=== PATIENT | female | born 1975 | race Two or more races ===

== ENCOUNTER 2025-06-16 16:50 | Inpatient (IN) | payer OTHER ==
[~2025-06-16] VITALS: Ht 152.4 cm; Wt 77.8 kg
[2025-06-16 17:33] LABS: PLATELET COUNT (AUTO) 245 K/uL (179-408); RED BLOOD CELL COUNT(AUTO) 4.97 MIL/uL (3.63-4.92); RED CELL DISTRIBUTION WIDTH 14.4 % (12.3-17.7); WHITE BLOOD COUNT (AUTO) 11.5 K/uL (3.8-11.8)
[2025-06-16] MEDS ORDERED: IV NORMAL SALINE 250 ML IV ONE (17:35)
[2025-06-16] MEDS ORDERED: IOHEXOL 350 100 ML INFUS..BTL ONE (17:36)
[2025-06-16] MEDS ORDERED: SWABABLE VALVE TRANSFER SET EA MC ONE (17:36)
[2025-06-16 17:42] LABS: CREATININE 0.8 mg/dL (0.6-1.3); SODIUM SERUM 140 mmol/L (136-145); UREA NITROGEN, BLOOD 8 mg/dL (7-18)
[2025-06-16 17:45] LABS: ETHANOL < 3 MG/DL (0-10)
[2025-06-16 17:57] LABS: ASPARTATE AMINOTRANSFERASE 21 U/L (15-37); TOTAL PROTEIN, SERUM 8.1 g/dL (6.4-8.2)
[2025-06-16 18:54] LABS: *URINE HCG, QUAL NEGATIVE (NEGATIVE)
[2025-06-16 18:55] LABS: *BILIRUBIN,URIN NEGATIVE (NEGATIVE); *BLOOD, URINE NEGATIVE (NEGATIVE); *CLARITY,URINE CLEAR (CLEAR); *COLOR,URINE YELLOW (YELLOW); *KETONES,URINE NEGATIVE (NEGATIVE); *PROTEIN,URINE NEGATIVE (NEGATIVE); *UROBILINOGEN,URINE 0.2 E.U./dl (NORMAL); LEUKOCYTE ESTERASE ,URINE NEGATIVE (NEGATIVE); NITRITE, URINE NEGATIVE (NEGATIVE); UGLUCOSE NEGATIVE (NEGATIVE)
[2025-06-16 18:59] LABS: *AMPHETAMINE, URINE NEGATIVE (NEGATIVE); *BARBITURATE, URINE NEGATIVE (NEGATIVE); *BENZODIAZEPINE, URINE NEGATIVE (NEGATIVE); *CANNABINOID, URINE NEGATIVE (NEGATIVE); *COCCAINE, URINE NEGATIVE (NEGATIVE); *OPIATE, URINE NEGATIVE (NEGATIVE); *PHENCYCLIDINE SCREEN,URINE NEGATIVE (NEGATIVE); FENTANYL, URINE NEGATIVE (NEGATIVE)
[2025-06-16] MEDS ORDERED: ONDANSETRON 4 MG/2 ML VIAL IV PRN (23:00)
[2025-06-16] MEDS ORDERED: REMEDY ESSENTIAL ZINC PASTE 113 GM TP PRN (23:00)
[2025-06-16] MEDS ORDERED: MAGNESIUM HYDROXIDE 30 ML LIQUID UDC PO PRN (23:00)
[2025-06-16] MEDS: BLOOD SUGAR DIAGNOSTIC 1 EACH STRIP VI SCH (23:00)
[2025-06-16] MEDS ORDERED: ASPIRIN 325 MG TABLET ONE (23:07)
[2025-06-16] MEDS ORDERED: CLOPIDOGREL 75 MG TABLET ONE (23:07)
[2025-06-16] MEDS: ASPIRIN 325 MG TABLET PO ONE (23:17)
[2025-06-16] MEDS: CLOPIDOGREL 75 MG TABLET PO ONE (23:17)
[2025-06-17] VITALS (7 sets, daily range): BP systolic 101–136; BP diastolic 54–70; TEMP 97.8–98.3; O2SAT 97–100
[2025-06-17] MEDS: ENOXAPARIN SODIUM 40 MG/0.4 ML DISP.SYRIN SQ SCH (01:15)
[2025-06-17] MEDS: BLOOD SUGAR DIAGNOSTIC 1 EACH STRIP VI SCH (01:19)
[2025-06-17] MEDS: ACETAMINOPHEN 325 MG TABLET PO PRN (01:23)
[2025-06-17 06:41] LABS: PLATELET COUNT (AUTO) 219 K/uL (179-408); RED BLOOD CELL COUNT(AUTO) 4.38 MIL/uL (3.63-4.92); RED CELL DISTRIBUTION WIDTH 14.7 % (12.3-17.7); WHITE BLOOD COUNT (AUTO) 10.7 K/uL (3.8-11.8)
[2025-06-17 07:02] LABS: CREATININE 0.7 mg/dL (0.6-1.3); SODIUM SERUM 138.0 mmol/L (136-145); UREA NITROGEN, BLOOD 8.0 mg/dL (7-18)
[2025-06-17] MEDS: ASPIRIN 81 MG TAB.CHEW PO SCH (08:14)
[2025-06-17] MEDS: CLOPIDOGREL 75 MG TABLET PO SCH (08:15)
[2025-06-17] MEDS: ATORVASTATIN 40 MG TABLET PO SCH (21:07)
[2025-06-18 03:48] VITALS: BP 106/50; TEMP 98.2; O2SAT 98
[2025-06-18 07:15] LABS: PLATELET COUNT (AUTO) 229 K/uL (179-408); RED BLOOD CELL COUNT(AUTO) 4.51 MIL/uL (3.63-4.92); RED CELL DISTRIBUTION WIDTH 14.6 % (12.3-17.7); WHITE BLOOD COUNT (AUTO) 9.8 K/uL (3.8-11.8)
[2025-06-18 07:29] LABS: CREATININE 0.7 mg/dL (0.6-1.3); SODIUM SERUM 140.0 mmol/L (136-145); UREA NITROGEN, BLOOD 6.0 mg/dL (7-18)
[2025-06-18 07:32] VITALS: BP 124/56; TEMP 98.7; O2SAT 97
[2025-06-18 10:24] VITALS: BP 112/45; TEMP 97.7; O2SAT 97
[2025-06-18 15:25] VITALS: BP 107/68; TEMP 98.2; O2SAT 96
[2025-06-18 20:46] VITALS: BP 102/50; TEMP 97.8; O2SAT 95
[2025-06-19 00:01] VITALS: BP 105/64; TEMP 98.1; O2SAT 97
[2025-06-19 04:37] VITALS: BP 115/75; TEMP 97.6; O2SAT 97
[2025-06-19 07:21] LABS: PLATELET COUNT (AUTO) 217 K/uL (179-408); RED BLOOD CELL COUNT(AUTO) 4.13 MIL/uL (3.63-4.92); RED CELL DISTRIBUTION WIDTH 14.2 % (12.3-17.7); WHITE BLOOD COUNT (AUTO) 8.9 K/uL (3.8-11.8)
[2025-06-19 07:41] LABS: CREATININE 0.6 mg/dL (0.6-1.3); SODIUM SERUM 140.0 mmol/L (136-145); UREA NITROGEN, BLOOD 10.0 mg/dL (7-18)
[2025-06-19 07:59] VITALS: BP 115/61; TEMP 97.7; O2SAT 99
[2025-06-19 11:46] VITALS: BP 109/49; TEMP 98.2; O2SAT 99
[2025-06-19 16:19] VITALS: BP 92/50; TEMP 98.3; O2SAT 96
[2025-06-19 21:58] VITALS: BP 113/76; TEMP 98.5; O2SAT 98
[2025-06-20 06:55] LABS: PLATELET COUNT (AUTO) 212 K/uL (179-408); RED BLOOD CELL COUNT(AUTO) 4.26 MIL/uL (3.63-4.92); RED CELL DISTRIBUTION WIDTH 14.6 % (12.3-17.7); WHITE BLOOD COUNT (AUTO) 8.7 K/uL (3.8-11.8)
[2025-06-20 07:06] LABS: HOMOCYSTEINE, PLASMA 7.8 umol/L (0.0-14.5)
[2025-06-20 09:00] VITALS: BP 115/60; TEMP 98; O2SAT 98
[2025-06-20 11:59] VITALS: BP 109/60; TEMP 98.1; O2SAT 99
[2025-06-20 16:13] VITALS: BP 132/48; TEMP 98.4; O2SAT 99
[2025-06-20 19:45] VITALS: BP 107/47; TEMP 98.6; O2SAT 99
[2025-06-21 00:38] VITALS: BP 104/49; TEMP 98.6; O2SAT 98
[2025-06-21 04:52] VITALS: BP 102/45; TEMP 98.1; O2SAT 98
[2025-06-21 07:57] VITALS: BP 108/49; TEMP 98; O2SAT 97
[2025-06-21 12:00] VITALS: BP 114/52; TEMP 97.8; O2SAT 98
[2025-06-21] MEDS ORDERED: APIX5TAB PO (12:20)
[2025-06-21] MEDS ORDERED: ATOR40TA PO (12:20)
[2025-06-21 16:00] VITALS: BP 148/77; TEMP 98.5; O2SAT 98
== END 2025-06-21 16:50 | disposition home health service (06) | DRG 45 ==
LOC: ER 17:03 → TELE3 22:55
PROVIDERS: ADMIT Registered Nurse Psychiatric/Mental Health; ATTEND Nurse Practitioner Acute Care
PROC: B246ZZ4 Ultrasonography of Right and Left Heart, Transesophageal (ICD-10-PCS; principal; 2025-06-20 07:30)
DX: I63.511 Cerebral infarction due to unspecified occlusion or stenosis of right middle cerebral artery (principal); G93.41 Metabolic encephalopathy; G81.94 Hemiplegia, unspecified affecting left nondominant side; D68.59 Other primary thrombophilia; R27.0 Ataxia, unspecified; R47.02 Dysphasia; H53.8 Other visual disturbances; E66.9 Obesity, unspecified; Z68.33 Body mass index [BMI] 33.0-33.9, adult; F39 Unspecified mood [affective] disorder; I10 Essential (primary) hypertension; E11.9 Type 2 diabetes mellitus without complications; E78.5 Hyperlipidemia, unspecified; H53.2 Diplopia; R26.81 Unsteadiness on feet; R29.702 NIHSS score 2; Z82.49 Family history of ischemic heart disease and other diseases of the circulatory system; Z74.09 Other reduced mobility; Z98.82 Breast implant status; Z86.73 Personal history of transient ischemic attack (TIA), and cerebral infarction without residual deficits
CPT/HCPCS: 36415; 70030-TC; 70450; 70496; 70551; 71045; 83090; 83605; 84443; 84484; 84703; 85025; 85305; 85613; 85651; 85730; 86140; 87040; 87086; 93307; 93312; 97161; A4606; A4663; G0378; G0480; J1650; J7040; Q9967